=== PATIENT | male | born 1950 | race Caucasian/White ===

== ENCOUNTER → 2016-10-11 | Outpatient (CLI) | payer OTHER ==
[~2016-10-11] MED LIST: ASPI1TAB24 PO; ATOR40TA PO; COUM2.5T11 PO; DULO30CA PO; GABA300C3 PO; INVO100T PO; LOSA25TA8 PO; METF1000 PO; OXYC1TAB23 PO; PERC5TAB6 PO; PLAV75TA38 PO; aleve OR
--- NOTE | 2016-10-18 06:58 | SLEEPCENT ---
DATE OF PROCEDURE: 10/11/2016 ORDERED BY: Opal Guerrero and Dr. Nidhi Bernardo Nocturnal polysomnography was performed for evaluation of sleep apnea syndrome symptoms in this patient with a history of excessive somnolence and nonrestorative sleep and comorbidities of hypertension and diabetes. 7 hours and 38 minutes of data were reviewed. There were 225 minutes of sleep identified. Sleep latency was prolonged at 45 minutes. Rapid eye movement (REM) latency was prolonged at 360 minutes. Sleep architecture showed poor progression. Periods of wake were noted over the course of the study. Overall sleep efficiency suffered at 50.2%. The patient's electrocardiogram (EKG) showed a sinus rhythm with an average heart rate of 70 beats per minute. Electroencephalogram (EEG) showed normal waveforms for awake and sleep. There were 76 respiratory events identified of 10 seconds in duration or greater for an apnea-hypopnea index of 20.2. The events were primarily obstructive, not exclusive to sleep stage nor to body posture. Arousals from respiratory events occurred 12 times per hour. Oxygen desaturations were seen into the 80s. There was also significant limb activity with 5 trains of 30 events or more. Limb movement arousals occurred 8.5 times per hour. IMPRESSIONS: 1. Obstructive sleep apnea syndrome (G47.33), apnea-hypopnea index 20.2. 2. Periodic limb movement disorder (G47.610, limb movement arousal index 8.5. RECOMMENDATION: The patient should be encouraged to return to the sleep disorder center for pressure therapy. In the interim, alcohol and sedative avoidance should be practiced and caution exercised during the operation of motor vehicles. Pending response to pressure therapy, interventions to reduce the frequency of arousals from limb activity may also be necessary to establish good quality sleep.
== END ==
LOC: M SLEEP 19:39
PROVIDERS: ATTEND Nurse Practitioner Adult Health
DX: G47.33 Obstructive sleep apnea (adult) (pediatric) (principal); G47.61 Periodic limb movement disorder

== ENCOUNTER → 2017-10-10 | Outpatient (REF) | payer MEDICARE, OTHER ==
[2017-10-10 12:02] LABS: BASO # 0.1 10^3/uL (0.0-0.2); BASO % 1.3 % (0.0-1.0); EOS # 0.2 10^3/uL (0.0-0.50); EOS % 4.5 % (0.0-3.0); HEMATOCRIT 44.9 % (42.0-52.0); HEMOGLOBIN 15.7 g/dl (14.0-18.0); IMMATURE GRANULOCYTE % 0.4 % (0-0); LYMPH # 1.3 10^3/uL (1.5-4.5); LYMPH % 23.9 % (24.0-44.0); MEAN CORPUSCULAR HEMOGLOBIN 32.4 pg (27.0-33.0); MEAN CORPUSCULAR VOLUME 92.6 fl (80.0-96.0); MONO # 0.4 10^3/uL (0.0-0.8); MONO % 7.5 % (0.0-5.0); NEUTROPHILS # 3.3 10^3/uL (1.8-7.7); NEUTROPHILS % 62.4 % (36.0-66.0); PLATELET COUNT, AUTOMATED 166 10^3/uL (150-450); RED BLOOD COUNT 4.85 10^6/uL (4.30-6.10); RED CELL DISTRIBUTION WIDTH 12.9 % (11.5-14.5); WHITE BLOOD COUNT 5.3 10^3/uL (4.0-10.0)
[2017-10-10 12:14] LABS: ALBUMIN 4.2 GM/DL (3.2-5.2); ALBUMIN/GLOBULIN RATIO 1.35 (1.00-1.93); ALKALINE PHOSPHATASE 81 U/L (45-117); ALT/SGPT 29 U/L (12-78); ANION GAP 10 MEQ/L (8-16); AST/SGOT 20 U/L (7-37); BILIRUBIN,TOTAL 0.6 MG/DL (0.2-1.0); BLOOD UREA NITROGEN 13 MG/DL (7-18); CALCIUM LEVEL 8.8 MG/DL (8.8-10.2); CARBON DIOXIDE LEVEL 27 MEQ/L (21-32); CHLORIDE LEVEL 106 MEQ/L (98-107); CHOLESTEROL LEVEL 133 MG/DL (<200); CREATININE FOR GFR 0.89 MG/DL (0.70-1.30); GLOMERULAR FILTRATION RATE > 60.0 (>49); GLUCOSE, FASTING 166 MG/DL (80-110); HDL CHOLESTEROL 35 MG/DL (>40); LDL CHOLESTEROL 68.8 MG/DL (<100); NON-HDL-C 98 MG/DL; POTASSIUM SERUM 4.1 MEQ/L (3.5-5.1); PROSTATIC SPECIFIC AG MONITOR 2.93 NG/ML (< 4.0); SODIUM LEVEL 143 MEQ/L (136-145); TOTAL PROTEIN 7.3 GM/DL (6.4-8.2); TRIGLYCERIDES LEVEL 146 MG/DL (<150)
[2017-10-10 12:35] LABS: CREATININE, URINE 93.5 MG/DL; MALB URINE SIEMENS 25.4 MG/L; MAU/CREAT RATIO 27.1 MCG/MG (0.0-30.0)
[2017-10-10 13:12] LABS: ESTIMATED AVERAGE GLUCOSE 140 MG/DL (60-110); HEMOGLOBIN A1c 6.5 %
== END ==
LOC: M LABDRAW1 11:41
DX: E11.42 Type 2 diabetes mellitus with diabetic polyneuropathy (principal); R32 Unspecified urinary incontinence
CPT/HCPCS: 80053

== ENCOUNTER → 2018-06-24 | Outpatient (REF) | payer MEDICARE, OTHER ==
[2018-06-24 12:34] LABS: ALBUMIN 4.3 GM/DL (3.2-5.2); ALKALINE PHOSPHATASE 82 U/L (45-117); ALT/SGPT 36 U/L (12-78); AST/SGOT 20 U/L (7-37); BILIRUBIN,DIRECT 0.1 MG/DL (0.0-0.2); BILIRUBIN,TOTAL 0.5 MG/DL (0.2-1.0); TOTAL PROTEIN 7.6 GM/DL (6.4-8.2)
== END ==
LOC: M LAB REF 11:55
DX: B35.4 Tinea corporis (principal); B35.1 Tinea unguium
CPT/HCPCS: 80076

== ENCOUNTER → 2018-08-17 | Outpatient (REF) | payer MEDICARE, OTHER ==
[2018-08-17 15:43] LABS: ALBUMIN 4.2 GM/DL (3.2-5.2); ALBUMIN/GLOBULIN RATIO 1.27 (1.00-1.93); ALKALINE PHOSPHATASE 80 U/L (45-117); ALT/SGPT 32 U/L (12-78); AST/SGOT 18 U/L (7-37); BILIRUBIN,DIRECT 0.2 MG/DL (0.0-0.2); BILIRUBIN,TOTAL 0.5 MG/DL (0.2-1.0); TOTAL PROTEIN 7.5 GM/DL (6.4-8.2)
== END ==
LOC: M LABDRAW1 13:54
DX: B35.4 Tinea corporis (principal); B35.1 Tinea unguium
CPT/HCPCS: 80076

== ENCOUNTER → 2018-08-24 | Outpatient (REF) | payer MEDICARE, OTHER ==
[2018-08-24 13:28] LABS: ALBUMIN/GLOBULIN RATIO 1.25 (1.00-1.93); ALKALINE PHOSPHATASE 76 U/L (45-117); ALT/SGPT 30 U/L (12-78); AST/SGOT 21 U/L (7-37); BILIRUBIN,DIRECT 0.1 MG/DL (0.0-0.2); BILIRUBIN,TOTAL 0.5 MG/DL (0.2-1.0); TOTAL PROTEIN 7.2 GM/DL (6.4-8.2)
== END ==
LOC: M LABDRAW1 09:09
DX: B35.4 Tinea corporis (principal); B35.1 Tinea unguium

== ENCOUNTER → 2018-08-24 | Outpatient (REF) | payer MEDICARE, OTHER ==
[2018-08-24 13:00] LABS: HEMATOCRIT 44.8 % (42.0-52.0); HEMOGLOBIN 15.8 g/dl (13.5-17.5); MEAN CORPUSCULAR HEMOGLOBIN 32.5 pg (27.0-33.0); MEAN CORPUSCULAR HGB CONC 35.3 g/dl (32.0-36.5); MEAN CORPUSCULAR VOLUME 92.2 fl (80.0-96.0); PLATELET COUNT, AUTOMATED 169 10^3/uL (150-450); RED BLOOD COUNT 4.86 10^6/uL (4.30-6.10); RED CELL DISTRIBUTION WIDTH 12.5 % (11.5-14.5); WHITE BLOOD COUNT 6.7 10^3/uL (4.0-10.0)
[2018-08-24 13:26] LABS: ALBUMIN 4.1 GM/DL (3.2-5.2); ALBUMIN/GLOBULIN RATIO 1.17 (1.00-1.93); ALKALINE PHOSPHATASE 78 U/L (45-117); ALT/SGPT 30 U/L (12-78); ANION GAP 7 MEQ/L (8-16); AST/SGOT 18 U/L (7-37); BILIRUBIN,TOTAL 0.5 MG/DL (0.2-1.0); BLOOD UREA NITROGEN 15 MG/DL (7-18); CALCIUM LEVEL 8.8 MG/DL (8.8-10.2); CARBON DIOXIDE LEVEL 27 MEQ/L (21-32); CHLORIDE LEVEL 105 MEQ/L (98-107); GLOMERULAR FILTRATION RATE > 60.0 (>49); GLUCOSE, FASTING 210 MG/DL (70-100); SODIUM LEVEL 139 MEQ/L (136-145); TOTAL PROTEIN 7.6 GM/DL (6.4-8.2)
[2018-08-24 14:34] LABS: ERYTHROCYTE SEDIMENTATION RATE 6 mm/hr (0-20)
== END ==
LOC: M LABDRAW1 10:59
DX: Z51.81 Encounter for therapeutic drug level monitoring (principal); M16.12 Unilateral primary osteoarthritis, left hip; B35.4 Tinea corporis; B35.1 Tinea unguium; Z86.79 Personal history of other diseases of the circulatory system
CPT/HCPCS: 80053

== ENCOUNTER → 2018-08-31 | Outpatient (REF) | payer MEDICARE, OTHER ==
[2018-08-31 15:59] LABS: INR 0.99; PROTHROMBIN TIME 13.2 SECONDS (12.1-14.4)
== END ==
LOC: M LABDRAW1 11:42
DX: Z01.812 Encounter for preprocedural laboratory examination (principal); I25.2 Old myocardial infarction; E11.9 Type 2 diabetes mellitus without complications; M16.12 Unilateral primary osteoarthritis, left hip
CPT/HCPCS: 85610

== ENCOUNTER → 2018-09-10 | Outpatient (REF) | payer MEDICARE, OTHER ==
[2018-09-10 16:53] LABS: ALBUMIN 4.1 GM/DL (3.2-5.2); ALBUMIN/GLOBULIN RATIO 1.14 (1.00-1.93); ALKALINE PHOSPHATASE 84 U/L (45-117); ALT/SGPT 34 U/L (12-78); AST/SGOT 22 U/L (7-37); BILIRUBIN,DIRECT 0.2 MG/DL (0.0-0.2); BILIRUBIN,TOTAL 0.6 MG/DL (0.2-1.0); TOTAL PROTEIN 7.7 GM/DL (6.4-8.2)
== END ==
LOC: M LABDRAW1 15:48
DX: B35.4 Tinea corporis (principal); B35.1 Tinea unguium

== ENCOUNTER 2018-09-11 06:04 | Inpatient (IN) | payer MEDICARE, OTHER ==
[2018-09-11] MEDS: LR 1,000 ML IV ×4 (02:05→10:00)
[2018-09-11] MEDS: ACETAMINOPHEN 500 MG TAB PO (06:30)
[2018-09-11 06:55] LABS: INR 0.95; PROTHROMBIN TIME 12.7 SECONDS (12.1-14.4)
[2018-09-11 07:03] LABS: GLUCOSE, FASTING 224 MG/DL (70-100)
[2018-09-11] MEDS ORDERED: PROPOFOL 200 MG/20 ML VIAL As Ordered ×2 (07:10)
[2018-09-11] MEDS ORDERED: dexameTHASONE 4 MG/ML 1ML VIAL (J1100) As Ordered (07:10)
[2018-09-11] MEDS ORDERED: MIDAZOLAM INJ 2 MG/2 ML VIAL (J2250) As Ordered (07:10)
[2018-09-11] MEDS ORDERED: ONDANSETRON 4MG/2ML VIAL (J2405) As Ordered (07:10)
[2018-09-11] MEDS ORDERED: fentaNYL 100 MCG/2 ML INJECTION (J3010) As Ordered (07:33)
[2018-09-11] MEDS ORDERED: ROCURONIUM BROMIDE 50 MG/5 ML VIAL As Ordered ×2 (07:54→08:48)
[2018-09-11] MEDS ORDERED: LIDOCAINE 2% INJ 100 MG/5 ML SDV (FOR ANES.) As Ordered (07:55)
[2018-09-11] MEDS: ceFAZolin 1GM INJ (J0690 PER 500MG) As Ordered (08:17)
[2018-09-11] MEDS ORDERED: ePHEDrine SULFATE 25 MG/5 ML(5MG/ML) SYRINGE As Ordered ×2 (08:49)
[2018-09-11] MEDS ORDERED: MORPHINE 1MG/ML IN 0.9% NACL 100ML IV BAG As Ordered (09:31)
[2018-09-11] MEDS: MORPHINE 1MG/ML IN 0.9% NACL 100ML IV BAG IV (09:45)
[2018-09-11] MEDS ORDERED: GLYCOPYRROLATE INJ 0.2 MG/ML 2 ML VIAL As Ordered (09:53)
[2018-09-11] MEDS ORDERED: NEOSTIGMINE 10 MG/10 ML VIAL (J2710) As Ordered (09:53)
[2018-09-11] MEDS ORDERED: ACETAMINOPHEN TAB 650MG DOSE (2X325MG) PO (10:00)
[2018-09-11] MEDS ORDERED: NALOXONE INJ 0.4 MG/1 ML VIAL (J2310) IV (10:00)
[2018-09-11] MEDS ORDERED: MORPHINE 10 MG/ML 1ML VIAL (J2270) IV (10:00)
[2018-09-11] MEDS ORDERED: EPIDURAL/PCA KEYS XX (10:00)
[2018-09-11] MEDS ORDERED: fentaNYL 100 MCG/2 ML INJECTION (J3010) IV (10:00)
[2018-09-11] MEDS ORDERED: FLEET ENEMA PR (10:00)
[2018-09-11] MEDS ORDERED: diphenhydrAMINE INJ 50MG/ML VIAL (J1200) IV (10:00)
[2018-09-11] MEDS ORDERED: ONDANSETRON 4MG/2ML VIAL (J2405) IV ×2 (10:00)
[2018-09-11] MEDS ORDERED: NALBUPHINE HCL 10 MG/ML AMP (J2300) IV (10:00)
[2018-09-11] MEDS ORDERED: GLUCOSE 4 GM CHEW TABLET PO (11:15)
[2018-09-11] MEDS ORDERED: GLUCAGON FOR INJ 1 MG VIAL (J1610) SC (11:15)
[2018-09-11] MEDS ORDERED: DEXTROSE 50% 50 ML SYRINGE IV (11:15)
[2018-09-11] MEDS: HumaLOG INSULIN (NovoLOG) PER UNIT SC ×3 (12:00→21:00)
[2018-09-11] MEDS: hydrOXYzine 25 MG TAB PO ×2 (14:02→20:14)
[2018-09-11] MEDS: VENLAFAXINE 37.5 MG TAB PO (14:07)
[2018-09-11] MEDS ORDERED: BUPIVACAINE/DEXTROSE 0.75% 2 ML AMP As Ordered (15:18)
[2018-09-11] MEDS: GABAPENTIN 300 MG CAP PO ×2 (16:34→20:13)
[2018-09-11 17:15] LABS: BEDSIDE GLUCOSE 219 MG/DL (80-115)
[2018-09-11] MEDS: SENOKOT S TAB PO (20:13)
[2018-09-11] MEDS: ROSUVASTATIN 10 MG TAB (CRESTOR) PO (20:14)
[2018-09-11 20:27] LABS: BEDSIDE GLUCOSE 247 MG/DL (80-115)
[2018-09-12] MEDS ORDERED: ONDANSETRON 4 MG TAB (S0181) PO (05:45)
[2018-09-12 06:02] LABS: HEMATOCRIT 37.3 % (42.0-52.0); HEMOGLOBIN 12.9 g/dl (13.5-17.5); MEAN CORPUSCULAR HEMOGLOBIN 32.7 pg (27.0-33.0); MEAN CORPUSCULAR HGB CONC 34.6 g/dl (32.0-36.5); MEAN CORPUSCULAR VOLUME 94.7 fl (80.0-96.0); PLATELET COUNT, AUTOMATED 152 10^3/uL (150-450); RED BLOOD COUNT 3.94 10^6/uL (4.30-6.10); RED CELL DISTRIBUTION WIDTH 12.8 % (11.5-14.5); WHITE BLOOD COUNT 12.5 10^3/uL (4.0-10.0)
[2018-09-12 06:11] LABS: INR 1.02; PROTHROMBIN TIME 13.5 SECONDS (12.1-14.4)
[2018-09-12] MEDS: PERCOCET 5MG/325MG TAB PO ×2 (06:29→10:33)
[2018-09-12 06:41] LABS: ANION GAP 7 MEQ/L (8-16); BLOOD UREA NITROGEN 17 MG/DL (7-18); CALCIUM LEVEL 8.1 MG/DL (8.8-10.2); CARBON DIOXIDE LEVEL 28 MEQ/L (21-32); CHLORIDE LEVEL 101 MEQ/L (98-107); CREATININE FOR GFR 1.09 MG/DL (0.70-1.30); GLOMERULAR FILTRATION RATE > 60.0 (>49); GLUCOSE, FASTING 200 MG/DL (70-100); MAGNESIUM LEVEL 1.8 MG/DL (1.8-2.4); POTASSIUM SERUM 4.1 MEQ/L (3.5-5.1); SODIUM LEVEL 136 MEQ/L (136-145)
[2018-09-12] MEDS: hydrOXYzine 25 MG TAB PO (09:00)
[2018-09-12] MEDS: HumaLOG INSULIN (NovoLOG) PER UNIT SC (09:56)
[2018-09-12] MEDS: MOM 30ML SUSPENSION UDC PO (09:56)
[2018-09-12] MEDS: MIRALAX *UNIT DOSE* 17GM PACKET PO (09:57)
[2018-09-12] MEDS: VENLAFAXINE 37.5 MG TAB PO (09:57)
[2018-09-12] MEDS: ASPIRIN 81 MG ENTERIC TAB PO (09:58)
[2018-09-12] MEDS: GABAPENTIN 300 MG CAP PO (09:58)
[2018-09-12] MEDS: SENOKOT S TAB PO (09:59)
[2018-09-12] MEDS: LOSARTAN 25 MG TAB PO (10:00)
[2018-09-12 11:21] LABS: BEDSIDE GLUCOSE 197 MG/DL (80-115)
[2018-09-12] MEDS ORDERED: RIVAROXABAN 10 MG TAB (XARELTO) PO (18:00)
[2018-09-13] MEDS ORDERED: ASPIRIN 81 MG ENTERIC TAB PO (09:00)
== END 2018-09-12 14:05 | disposition home or self-care (01) | DRG 470 ==
LOC: M OR 06:04 → M MS5PR 11:15
PROVIDERS: Orthopaedic Surgery
PROC: 0SRB02A Replacement of Left Hip Joint with Metal on Polyethylene Synthetic Substitute, Uncemented, Open Approach (ICD-10-PCS; principal; 2018-09-11 07:30)
DX: M16.12 Unilateral primary osteoarthritis, left hip (principal); Z79.899 Other long term (current) drug therapy; E11.51 Type 2 diabetes mellitus with diabetic peripheral angiopathy without gangrene; I10 Essential (primary) hypertension; E78.2 Mixed hyperlipidemia; G47.33 Obstructive sleep apnea (adult) (pediatric); I25.2 Old myocardial infarction; Z95.2 Presence of prosthetic heart valve; Z79.82 Long term (current) use of aspirin; I25.10 Atherosclerotic heart disease of native coronary artery without angina pectoris

== ENCOUNTER → 2019-02-04 | Outpatient (REF) | payer MEDICARE, OTHER ==
[~2019-02-04] MED LIST changes: +ASPI-161 PO; -ASPI1TAB24 PO; +ASPI81TA26 PO; +ASPI81TA85 PO; -ATOR40TA PO; +ATOR40TA75 PO; -COUM2.5T11 PO; +COUM2.5T17 PO; +CRES10TA PO; -DULO30CA PO; +DULO30CA9 PO; +GABA-843 PO; -GABA300C3 PO; +HYDR-3363 PO; +HYDR-3713 PO; +IBUP200C25 PO; +LOSA25TA14 PO; -LOSA25TA8 PO; -METF1000 PO; +METF10004 PO; +PERC5TAB12 PO; -PERC5TAB6 PO; +PLAV1TAB2 PO; -PLAV75TA38 PO; +TERB250T12 PO; +VENL-115 PO; +XARE10TA PO
[2019-02-04 12:55] LABS: BASO # 0.1 10^3/uL (0.0-0.2); BASO % 1.1 % (0.0-1.0); EOS # 0.3 10^3/uL (0.0-0.50); EOS % 3.3 % (0.0-3.0); HEMATOCRIT 45.4 % (42.0-52.0); HEMOGLOBIN 15.1 g/dl (13.5-17.5); LYMPH # 2.2 10^3/uL (1.5-4.5); LYMPH % 28.3 % (24.0-44.0); MEAN CORPUSCULAR HEMOGLOBIN 31.7 pg (27.0-33.0); MEAN CORPUSCULAR HGB CONC 33.3 g/dl (32.0-36.5); MEAN CORPUSCULAR VOLUME 95.4 fl (80.0-96.0); MONO # 0.6 10^3/uL (0.0-0.8); MONO % 7.8 % (0.0-5.0); NEUTROPHILS # 4.6 10^3/uL (1.8-7.7); NEUTROPHILS % 58.7 % (36.0-66.0); PLATELET COUNT, AUTOMATED 184 10^3/uL (150-450); RED BLOOD COUNT 4.76 10^6/uL (4.30-6.10); WHITE BLOOD COUNT 7.8 10^3/uL (4.0-10.0)
[2019-02-04 13:00] LABS: ALBUMIN 3.9 GM/DL (3.2-5.2); ALT/SGPT 33 U/L (12-78); BILIRUBIN,TOTAL 0.5 MG/DL (0.2-1.0); BLOOD UREA NITROGEN 16 MG/DL (7-18); CALCIUM LEVEL 9.2 MG/DL (8.8-10.2); CARBON DIOXIDE LEVEL 27 MEQ/L (21-32); CHLORIDE LEVEL 107 MEQ/L (98-107); CHOLESTEROL LEVEL 132 MG/DL (<200); CREATININE FOR GFR 0.83 MG/DL (0.70-1.30); GLOMERULAR FILTRATION RATE > 60.0 (>49); GLUCOSE, FASTING 162 MG/DL (70-100); HDL CHOLESTEROL 25 MG/DL (>40); NON-HDL-C 107 MG/DL; POTASSIUM SERUM 4.1 MEQ/L (3.5-5.1); SODIUM LEVEL 140 MEQ/L (136-145); TOTAL PROTEIN 6.8 GM/DL (6.4-8.2); TRIGLYCERIDES LEVEL 602 MG/DL (<150)
[2019-02-04 13:14] LABS: HEMOGLOBIN A1c 7.5 %
[2019-02-04 13:22] LABS: MALB URINE SIEMENS 5.9 MG/L; MAU/CREAT RATIO 9.2 MCG/MG (0.0-30.0)
== END ==
LOC: M LABDRAW1 11:53
PROVIDERS: ATTEND Family Medicine
DX: E11.42 Type 2 diabetes mellitus with diabetic polyneuropathy (principal)

== ENCOUNTER → 2019-06-08 | Outpatient (REF) | payer MEDICARE, OTHER ==
[2019-06-08 18:11] LABS: HEMOGLOBIN A1c 7.2 %
== END ==
LOC: M LABDRAW1 11:18
PROVIDERS: ATTEND Family Medicine
DX: E11.42 Type 2 diabetes mellitus with diabetic polyneuropathy (principal)

== ENCOUNTER → 2023-02-14 | Outpatient (CLI) | payer MEDICARE, OTHER ==
[~2023-02-14] MED LIST changes: -ASPI81TA85 PO; +ASPI81TA86 PO; +CLOP75TA99 PO; +GABA-282 PO; -GABA-843 PO; +LOSA25TA13 PO; -LOSA25TA14 PO; -PLAV1TAB2 PO; -TERB250T12 PO; +TERB250T91 PO
[2023-02-14 13:38] LABS: HEMOGLOBIN A1c 7.3 % (4.0-6.0)
[2023-02-14 13:42] LABS: CREATININE, URINE 36.9 MG/DL; MAU/CREAT RATIO 13.5 MCG/MG (0.0-30.0)
[2023-02-14 13:43] LABS: ALBUMIN 4.4 G/DL (3.2-5.2); ALKALINE PHOSPHATASE 76 U/L (46-116); ALT/SGPT 46 U/L (7.0-40); AST/SGOT 27 U/L (<34); BILIRUBIN,TOTAL 0.5 MG/DL (0.3-1.2); BLOOD UREA NITROGEN 14 MG/DL (9-23); CALCIUM LEVEL 9.2 MG/DL (8.3-10.6); CARBON DIOXIDE LEVEL 28 MMOL/L (20-31); CHLORIDE LEVEL 103 MMOL/L (98-107); CHOLESTEROL LEVEL 123 MG/DL (<200); CHOLESTEROL RISK RATIO 3.12 (<5); CREATININE FOR GFR 0.85 MG/DL (0.70-1.30); GLOMERULAR FILTRATION RATE > 60.0 (>42); GLUCOSE, FASTING 236 MG/DL (74-106); HDL CHOLESTEROL 39.3 MG/DL (>40); LDL CHOLESTEROL 49.5 MG/DL (<100); NON-HDL-C 83.7 MG/DL; POTASSIUM SERUM 4.6 MMOL/L (3.5-5.1); SODIUM LEVEL 137 MMOL/L (136-145); TOTAL PROTEIN 7.1 G/DL (5.7-8.2); TRIGLYCERIDES LEVEL 171 MG/DL (<150)
== END ==
LOC: M PLALAB 11:12
PROVIDERS: ATTEND Nurse Practitioner Family
DX: E78.2 Mixed hyperlipidemia (principal); E11.42 Type 2 diabetes mellitus with diabetic polyneuropathy; I10 Essential (primary) hypertension